=== PATIENT | female | born 1955 | race Caucasian/White ===

== ENCOUNTER 2020-12-13 11:40 | Outpatient (REF) | payer MEDICARE, SELFPAY ==
[2020-12-13 12:40] LABS: MANUAL DIFF FLAG NO
[2020-12-13 12:45] LABS: Basophils Absolute Auto 0.1 X10*3/uL (0.0-0.2); Basophils Percent Auto 1.2 % (0-2); Eosinophils Absolute Auto 0.4 X10*3/uL (0.0-0.4); Eosinophils Percent Auto 7.1 % (0-4); Hemoglobin 10.8 g/dl (12.0-16.0); Imm Gran Abs Auto 0.03 X10*3/uL (0.00-0.03); Imm Gran Pct Auto 0.5 % (0.0-0.4); Lymphocytes Absolute Auto 1.8 X10*3/uL (1.2-4.9); Lymphocytes Percent Auto 32.2 % (20-40); Mean Corpuscular HGB Conc 29.2 g/dl (31.0-35.0); Mean Corpuscular Hemoglobin 23.1 pg (27.0-33.0); Mean Corpuscular Volume 79.2 fL (80-98); Mean Platelet Volume 9.8 fL (9.4-12.3); Monocytes Absolute Auto 0.6 X10*3/uL (0.1-1.2); Monocytes Percent Auto 10.2 % (2-11); Neutrophils Absolute Auto 2.8 X10*3/uL (2.0-8.3); Neutrophils Percent Auto 48.8 % (45-73); Platelet Count 303 X10*3/uL (160-400); Red Blood Count 4.67 X10*6/uL (4.20-5.50); Red Cell Distribution Width 17.4 % (11.0-16.0); White Blood Count 5.7 X10*3/uL (4.8-10.8)
[2020-12-13 13:09] LABS: Alanine Aminotransferase 28 U/L (0-31); Albumin Level 3.8 g/dL (3.5-5.0); Alkaline Phosphatase 83 U/L (39-117); Anion Gap 12 (12-20); Aspartate Amino Transferase 30 U/L (5-31); Bilirubin Total 0.7 mg/dL (0.0-1.0); Blood Urea Nitrogen 15 mg/dL (9-16); Calcium 9.5 mg/dL (8.4-10.2); Carbon Dioxide 25 mmol/L (22-29); Chloride 110 mmol/L (96-108); Estimated Glomerular Filt Rate 57; Glucose Fasting 109 mg/dL (60-99); Potassium 4.6 mmol/L (3.3-5.1); Sodium 142 mmol/L (135-145); Total Protein 6.1 g/dL (6.5-8.0)
[2020-12-13 13:25] LABS: Thyroid Stimulating Hormone 0.33 uIU/mL (0.32-4.0)
== END 2020-12-13 11:41 | disposition home or self-care (01) ==
LOC: HO.MANLDS 11:40
PROVIDERS: PCP Physician Assistant; Visit Provider Physician Assistant
DX: I10 Essential (primary) hypertension (principal); E03.9 Hypothyroidism, unspecified
CPT/HCPCS: 36415; 80053; 84439; 84443; 85025

== ENCOUNTER 2021-09-26 10:35 | Outpatient (REF) | payer MEDICARE, SELFPAY ==
[2021-09-26 13:20] LABS: MANUAL DIFF FLAG NO
[2021-09-26 13:25] LABS: Basophils Absolute Auto 0.1 X10*3/uL (0.0-0.2); Basophils Percent Auto 1.3 % (0-2); Eosinophils Absolute Auto 0.3 X10*3/uL (0.0-0.4); Eosinophils Percent Auto 4.2 % (0-4); Hematocrit 41.1 % (37.0-47.0); Hemoglobin 11.9 g/dl (12.0-16.0); Imm Gran Abs Auto 0.02 X10*3/uL (0.00-0.03); Imm Gran Pct Auto 0.3 % (0.0-0.4); Lymphocytes Percent Auto 28.3 % (20-40); Mean Corpuscular Hemoglobin 23.3 pg (27.0-33.0); Mean Corpuscular Volume 80.6 fL (80.0-98.0); Mean Platelet Volume 10.2 fL (9.4-12.3); Monocytes Absolute Auto 0.5 X10*3/uL (0.1-1.2); Monocytes Percent Auto 7.5 % (2-11); Neutrophils Absolute Auto 4.1 x10*3/uL (2.0-8.3); Neutrophils Percent Auto 58.4 % (45-73); Platelet Count 376 X10*3/uL (160-400); Red Cell Distribution Width 17.6 % (11.0-16.0)
[2021-09-26 13:34] LABS: Alanine Aminotransferase 20 U/L (0-31); Albumin Level 4.1 g/dL (3.5-5.0); Alkaline Phosphatase 97 U/L (39-117); Anion Gap 14 (12-20); Aspartate Amino Transferase 22 U/L (5-31); Bilirubin Total 0.7 mg/dL (0.0-1.0); Blood Urea Nitrogen 16 mg/dL (9-16); Calcium 9.8 mg/dL (8.4-10.2); Carbon Dioxide 26 mmol/L (22-29); Chloride 104 mmol/L (96-108); Cholesterol 205 mg/dL; Estimated Glomerular Filt Rate 51; Glucose Fasting 104 mg/dL (60-99); HDL Cholesterol 38 mg/dL; LDL Cholesterol Calculated 124 mg/dl; Potassium 4.5 mmol/L (3.3-5.1); Sodium 139 mmol/L (135-145); Total Protein 6.8 g/dL (6.5-8.0); Triglycerides 216 mg/dL
[2021-09-26 13:55] LABS: Free T4 (Free Thyroxine) 0.93 ng/dL (0.71-1.85); Thyroid Stimulating Hormone 0.72 uIU/mL (0.32-4.0)
== END 2021-09-26 10:36 | disposition home or self-care (01) ==
LOC: HO.MANLDS 10:35
PROVIDERS: Visit Provider Physician Assistant
DX: E78.2 Mixed hyperlipidemia (principal)
CPT/HCPCS: 36415; 80053; 80061; 84439; 84443; 85025

== ENCOUNTER 2022-02-22 10:53 | Outpatient (REF) | payer MEDICARE, SELFPAY ==
[2022-02-22 14:11] LABS: MANUAL DIFF FLAG NO
[2022-02-22 14:14] LABS: Basophils Absolute Auto 0.1 X10*3/uL (0.0-0.2); Basophils Percent Auto 1.5 % (0-2); Eosinophils Absolute Auto 0.3 X10*3/uL (0.0-0.4); Eosinophils Percent Auto 3.8 % (0-4); Hematocrit 40.5 % (37.0-47.0); Hemoglobin 11.8 g/dl (12.0-16.0); Imm Gran Abs Auto 0.03 X10*3/uL (0.00-0.03); Imm Gran Pct Auto 0.5 % (0.0-0.4); Lymphocytes Percent Auto 30.5 % (20-40); Mean Corpuscular HGB Conc 29.1 g/dl (31.0-35.0); Mean Corpuscular Hemoglobin 23.3 pg (27.0-33.0); Mean Platelet Volume 10.2 fL (9.4-12.3); Monocytes Absolute Auto 0.6 X10*3/uL (0.1-1.2); Monocytes Percent Auto 8.3 % (2-11); Neutrophils Absolute Auto 3.7 x10*3/uL (2.0-8.3); Neutrophils Percent Auto 55.4 % (45-73); Platelet Count 356 X10*3/uL (160-400); Red Blood Count 5.06 X10*6/uL (4.20-5.50); Red Cell Distribution Width 16.6 % (11.0-16.0); White Blood Count 6.7 X10*3/uL (4.8-10.8)
[2022-02-22 14:58] LABS: Alanine Aminotransferase 17 U/L (0-31); Alkaline Phosphatase 91 U/L (39-117); Anion Gap 12 (12-20); Aspartate Amino Transferase 20 U/L (5-31); Bilirubin Total 0.6 mg/dL (0.0-1.0); Blood Urea Nitrogen 14 mg/dL (9-16); Calcium 9.8 mg/dL (8.4-10.2); Carbon Dioxide 29 mmol/L (22-29); Chloride 105 mmol/L (96-108); Cholesterol 211 mg/dL; Estimated Glomerular Filt Rate 57; Free T4 (Free Thyroxine) 0.92 ng/dL (0.71-1.85); Glucose Random 96 mg/dL (60-115); HDL Cholesterol 40 mg/dL; LDL Cholesterol Calculated 123 mg/dl; Sodium 141 mmol/L (135-145); Thyroid Stimulating Hormone 0.97 uIU/mL (0.32-4.0); Total Protein 6.5 g/dL (6.5-8.0); Triglycerides 244 mg/dL
== END 2022-02-22 10:54 | disposition home or self-care (01) ==
LOC: HO.MANLDS 10:53
PROVIDERS: Visit Provider Physician Assistant
DX: Z00.00 Encounter for general adult medical examination without abnormal findings (principal)
CPT/HCPCS: 36415; 80053; 80061; 84439; 84443; 85025

== ENCOUNTER 2023-07-10 14:35 | Outpatient (REF) | payer MEDICARE, SELFPAY ==
[2023-07-10 17:55] LABS: MANUAL DIFF FLAG NO
[2023-07-10 18:11] LABS: Estimated Average Glucose 117 mg/dL; Hemoglobin A1c % 5.7 % (<6.0)
[2023-07-10 18:31] LABS: Basophils Absolute Auto 0.1 X10*3/uL (0.0-0.2); Basophils Percent Auto 1.6 % (0-2); Eosinophils Absolute Auto 0.3 X10*3/uL (0.0-0.4); Eosinophils Percent Auto 4.1 % (0-4); Hematocrit 38.3 % (37.0-47.0); Hemoglobin 11.6 g/dl (12.0-16.0); Imm Gran Abs Auto 0.03 X10*3/uL (0.00-0.03); Imm Gran Pct Auto 0.4 % (0.0-0.4); Lymphocytes Absolute Auto 2.5 X10*3/uL (1.2-4.9); Lymphocytes Percent Auto 32.8 % (20-40); Mean Corpuscular HGB Conc 30.3 g/dl (31.0-35.0); Mean Corpuscular Hemoglobin 23.9 pg (27.0-33.0); Mean Corpuscular Volume 78.8 fL (80.0-98.0); Mean Platelet Volume 10.3 fL (9.4-12.3); Monocytes Absolute Auto 0.6 X10*3/uL (0.1-1.2); Monocytes Percent Auto 8.2 % (2-11); Neutrophils Percent Auto 52.9 % (45-73); Platelet Count 370 X10*3/uL (160-400); Red Blood Count 4.86 X10*6/uL (4.20-5.50); Red Cell Distribution Width 18.7 % (11.0-16.0); White Blood Count 7.6 X10*3/uL (4.8-10.8)
[2023-07-10 18:51] LABS: Erythrocyte Sedimentation Rate 5 MM/HR (0-20)
[2023-07-10 18:55] LABS: Alanine Aminotransferase 34 U/L (0-31); Alkaline Phosphatase 88 U/L (39-117); Anion Gap 15 (12-20); Aspartate Amino Transferase 35 U/L (5-31); Bilirubin Total 0.7 mg/dL (0.0-1.0); Blood Urea Nitrogen 16 mg/dL (9-16); C Reactive Protein 0.25 mg/dL (< or = 0.50); Calcium 10.2 mg/dL (8.4-10.2); Carbon Dioxide 22 mmol/L (22-29); Chloride 106 mmol/L (96-108); Estimated Glomerular Filt Rate 52; Glucose Random 101 mg/dL (60-115); Magnesium 2.1 mg/dL (1.6-2.6); Phosphorus 3.5 mg/dL (2.7-4.5); Potassium 4.3 mmol/L (3.3-5.1); Sodium 139 mmol/L (135-145); Total Protein 6.9 g/dL (6.5-8.0); Uric Acid 7.4 mg/dL (2.4-5.7)
[2023-07-10 19:12] LABS: Free T4 (Free Thyroxine) 0.86 ng/dL (0.71-1.85); Thyroid Stimulating Hormone 0.47 uIU/mL (0.32-4.0); Vitamin D 25-OH Total 37.1 ng/mL (>30)
[2023-07-11 08:32] LABS: Parathyroid Hormone Intact 94.6 pg/mL (8.7-77.1)
[2023-07-11 18:23] LABS: Lyme Abs Screen <0.90 index
== END 2023-07-10 14:36 | disposition home or self-care (01) ==
LOC: HO.MANLDS 14:35
PROVIDERS: Visit Provider Physician Assistant
DX: Z00.00 Encounter for general adult medical examination without abnormal findings (principal); M79.18 Myalgia, other site
CPT/HCPCS: 36415; 80053; 82306; 82550; 83036; 83735; 83970; 84100; 84439; 84443; 84550; 85025; 85652; 86140; 86617; 86618

== ENCOUNTER 2023-07-13 11:53 | Outpatient (REF) | payer MEDICARE, SELFPAY ==
[2023-07-13 18:29] LABS: Cholesterol 177 mg/dL (<200); HDL Cholesterol 37 mg/dL (>40); LDL Cholesterol Calculated 109 mg/dL (<100); Triglycerides 157 mg/dL (<150)
== END 2023-07-13 11:54 | disposition home or self-care (01) ==
LOC: HO.MANLDS 11:53
PROVIDERS: Visit Provider Physician Assistant
DX: Z00.00 Encounter for general adult medical examination without abnormal findings (principal); M79.18 Myalgia, other site
CPT/HCPCS: 36415; 80061

== ENCOUNTER 2023-07-20 11:15 | Outpatient (REF) | payer MEDICARE, SELFPAY ==
[2023-07-20 13:57] LABS: Calcium 10.1 mg/dL (8.4-10.2)
[2023-07-20 14:09] LABS: Parathyroid Hormone Intact 94.4 pg/mL (8.7-77.1)
== END 2023-07-20 11:16 | disposition home or self-care (01) ==
LOC: HO.MANLDS 11:15
PROVIDERS: Visit Provider Physician Assistant
DX: E03.8 Other specified hypothyroidism (principal)
CPT/HCPCS: 36415; 82310; 83970

== ENCOUNTER 2024-05-07 13:34 | Outpatient (REF) | payer MEDICARE, SELFPAY ==
--- OUTSIDE RECORDS SUMMARY | 2024-05-07 16:00 | XMS_ITS | Referral Summary ---
Author Organization [facility] Address [address] [place] [address] Care Team Providers Care Bologna Lacer Name Role Phone Robert Serrano Primary Care Provider [phone] Allergies Active Allergy Reactions Criticality Noted Date Comments Bee Sting Kit Anaphylaxis,Swelling High 12/26/2016 Bee type: Yellow jacket Codeine Sleep Disturbance 12/26/2016 Bad dreams Flavoring Agent (Bulk) Hives,Swelling High 12/26/2016 Throat swells when eating peanuts Medications albuterol (PROAIR HFA,VENTOLIN HFA) 90 mcg inhaler Inhale 2 puffs by mouth as needed. Active cholecalciferol (VITAMIN D3) 2,000 unit capsule Take 2,000 Units by mouth daily. Active clobetasoL (TEMOVATE) 0.05 % external solution as needed. 2 Active cyanocobalamin 1,000 mcg tablet Take 1 tablet by mouth daily. Active EPINEPHrine (EPIPEN) 0.3 mg/0.3 mL injection syringe as needed. 2 Active fluocinolone (SYNALAR) 0.025% cream as needed. 2 Active fluticasone propionate (FLONASE) 50 mcg/actuation nasal spray Administer 2 sprays into each nostril daily. 3 Active gabapentin (NEURONTIN) 300 mg capsule Take 900 mg by mouth daily. 2 Active glucosamine-cho ndroitin 500-400 mg capsule Take 1 capsule by mouth once a day. Active levothyroxine (SYNTHROID, LEVOTHROID) 100 mcg tablet Take 100 mcg by mouth daily. 3 Active lisinopriL (PRINIVIL,ZESTR IL) 20 mg tablet Take 20 mg by mouth daily. 3 Active LORazepam (ATIVAN) 0.5 mg tablet Take 0.5 mg by mouth as needed. 3 Active meloxicam (MOBIC) 15 mg tablet Take 15 mg by mouth at bed time. 2 Active metroNIDAZOLE (METROCREAM) 0.75 % cream Apply topically to the affected area daily. Active PARoxetine (PAXIL) 40 mg tablet Take 40 mg by mouth daily. 3 Active pimecrolimus (ELIDEL) 1% cream SMARTSIG:Topica l Twice Daily 2 Active selenium sulfide 2.25 % shampoo as needed. Active zolpidem (AMBIEN) 10 mg tablet Take 5 mg by mouth as needed. Active Active Problems Problem Noted Date Diagnosed Date Achilles tendonosis of right lower extremity Social History Tobacco Use Types Packs/Day Years Used Date Smoking Tobacco: Never Passive Smoke Exposure: Never Smokeless Tobacco: Never Tobacco Cessation:Counseling Given: Not Answered Alcohol Use Standard Drinks/Week Comments Yes 0 (1 standard drink = 0.6 oz pur e alcohol) social Comments Unknown Sex and Gender Information Value Date Recorded Sex Assigned at Not on file Legal Sex Female 2:17 PM EDT Gender Identity Not on file Sexual Orientation Not on file Last Filed Vital Signs Vital Sign Reading Time Taken Comments Blood Pressure 138/78 10/17/2022 7:55 AM EDT Pulse 85 10/17/2022 7:55 AM EDT Temperature 36.7 ??C (98.1 ??F) 10/17/2022 7:55 AM ED T Respiratory Rate - - Oxygen Saturation - - Inhaled Oxygen Concentration - - Weight 111.4 kg (245 lb 9.6 oz) 10/17/2022 7:55 AM EDT Height - - Body Mass Index - - Plan of Treatment Not on file Insurance [facility] MCR REPLACE [facility] Care Teams Bologna Lacer Relationship Specialty Start Date End Date RajniRobert [address] [place] [id number] PCP - General Internal Medicine 05/23/22
--- OUTSIDE RECORDS SUMMARY | 2024-05-07 16:01 | XMS_ITS | Clinical Summary ---
Author Organization [facility] Address [address] [place] [address] Care Team Providers Care Account Installer Name Role Phone Robert Serrano Primary Care Provider [phone] Allergies Active Allergy Reactions Criticality Noted Date [...] Mass Index - - Plan of Treatment Health Maintenance Due Date Last Done Comments Cologuard 1955 Colon Cancer Screening 1955 Colonoscopy 1955 FOBT / Fit Test 1955 Hepatitis C Screening 1955 Sigmoidoscopy 1955 Osteoporosis Screening 08/28/2005 Zoster Vaccines (1 of 2) 08/28/2005 RSV Vaccine (60+ years old and patients) (1 - Risk 60-74 years 1-dose series) 2015 DTaP,Tdap,and Td Vaccines (2 - Td or Tdap) 09/11/2022 09/11/2012 Mammogram 02/01/2023 02/01/2021 COVID-19 Vaccine (5 - season) 2023 11/25/2021, 12/13/2020, 05/24/2020, Additional history exists Influenza Vaccine (#1) 2023 2, 11/25/2021, 11/17/2020, Additional history exists Alcohol/Substance Use Screening 02/27/2024 Depression Screening and Follow-Up 02/27/2024 Health Care Proxy Review 02/27/2024 Social Drivers of Health Annual Screening 02/27/2024 Pneumococcal Vaccine: 50+ Years (3 of 3 - PCV20 or PCV21) 12/07/2025 12/07/2020, 11/12/2019 Hepatitis B Vaccines Aged Out No long er eligible based on patient's age to complete this topic Insurance [facility] M[facility] [employer] Care Teams Account Installer Relationship Specialty Start Date End Date Robert Serrano [address] [place] [phone] PCP - General Internal Medicine 05/23/22
--- OUTSIDE RECORDS SUMMARY | 2024-05-07 16:01 | XMS_ITS | Data Portability ---
Author Organization [facility] Home Service Address [address] [facility] [place] [address] Assessment Encounter Date Assessment Date Assessment LastModified by Organization Details LastModified Time 02/14/2021 02/14/2021 Patient agreed and verbally consents to this audio and video Telehealth appt via a secure platform [email or web address] Not available 02/14/2021 14:08:53 09/26/2021 09/26/2021 The patient denies recent falls or recurrent falls. Denies instability, weakness, abnormal gait, or difficulties with movement. The patient wears correct, supportive shoes and is not otherwise severely visually impaired. The patient is full weight bearing and if using the assistance of a cane or walker feels supported and stable with the use of such devices. All medical conditions have been taken into account that may pose a risk for the patient for falls. Home jenifer, carpets and/or rugs do not pose a challenge for the patient. The patient has been educated about the use of vitamin D supplementation for bone health and prevention of hypotensive episodes that may increase risk for fall. All question and concerns were answered to the patient's satisfaction. [email or web address] Not available 09/26/2021 10:17:29 04/18/2024 04/18/2024 Patient presented for medication refill. Patient tolerating medication well at current dose without adverse effects. Refilled as below. Discussed plan with patient, who expressed understanding. Follow up as noted below. [email or web address] Not available 04/18/2024 14:29:01 Plan of Treatment Reminders Order Date Submit Date Provider Last Modified By Organization Details Last Modified Time Details Appointments Pre-Op 2024 10:00A M VIPUL LOW Not available Not available Not available ANNUAL EXAM 2024 03:30P M VIPUL LOW Not available Not available Not available Lab lipid panel, serum 2024 025 [facility], [address] [place] [address], [id number], 04/18/2024 15:02:56 TSH + free T4, serum 2024 025 [facility], [address] [place] [address], [id number], 04/18/2024 14:47:40 CMP, serum or plasma 2024 025 [facility], [address] [place] [address], [id number], 04/18/2024 14:47:40 CBC w/ auto diff 2024 025 [facility], [address] [place] [address], [id number], 04/18/2024 14:47:40 CMP, serum or plasma 2023 024 [facility], [address] [place] [address], [id number], 06/27/2023 14:54:52 CBC w/ auto diff 2023 024 [facility], [address] [place] [address], [id number], 06/27/2023 14:54:52 lipid panel, blood 2023 024 [facility], [address] [place] [address], [id number], 07/16/2023 11:44:00 vitamin D, 25-hydrox y, total, serum 2023 024 [facility], [address] [place] [address], [id number], 06/27/2023 14:54:52 hemoglobi n A1c, QN, blood 2023 024 [facility], [address] [place] [address], [id number], 06/27/2023 14:54:52 TSH + free T4, serum 2023 024 [facility], [address] [place] [address], [id number], 06/27/2023 14:54:52 CK (creatine kinase), total, serum 2023 024 [facility], [address] [place] [address], [id number], 06/27/2023 14:54:52 magnesium , serum or plasma 2023 024 [facility], [address] [place] [address], [id number], 06/27/2023 14:54:52 PTH (parathyr oid hormone), intact + calcium, serum or plasma 2023 024 [facility], [address] [place] [address], [id number], 07/23/2023 11:23:25 phosphoru s, serum or plasma 2023 024 [facility], [address] [place] [address], [id number], 06/27/2023 14:54:53 ESR (erythroc yte sedimenta tion rate), blood 2023 [facility], [address] [place] [address], [id number], 06/27/2023 14:54:53 lyme disease igg+igm, serum, reflex western blot 2023 [facility], [address] [place] [address], [id number], 07/12/2023 11:23:42 C reactive protein, QN, serum or plasma 2023 [facility], [address] [place] [address], [id number], 06/27/2023 14:54:53 uric acid, serum or plasma 2023 024 [facility], [address] [place] [address], [id number], 06/27/2023 14:54:52 CMP, serum or plasma 2021 [facility], [address] [place] [address], [id number], 02/23/2022 11:35:24 CBC w/ auto diff 2021 [facility], [address] [place] [address], [id number], 02/23/2022 11:35:24 lipid panel, blood 2021 [facility], [address] [place] [address], [id number], 02/23/2022 11:35:24 TSH + free T4, serum 2021 [facility], [address] [place] [address], [id number], 02/23/2022 11:35:24 CMP, serum or plasma 2021 [facility], [address] [place] [address], [id number], 09/27/2021 12:32:35 lipid panel, serum 2021 [facility], [address] [facility], [place], [address], 09/27/2021 12:32:35 CBC w/ auto diff 2021 022 [facility], [address] [place], [address], 09/27/2021 12:32:36 TSH + free T4, serum 2021 022 [facility], [address] [place], [address], 09/27/2021 12:32:35 Referral plastic surgeon referral 2024 025 rajesh Wright MD, [address] [place], [facility] [address], [place], [address], 04/21/2024 08:30:57 plastic surgeon referral 2021 022 rajesh Osei MD, [address] [place], [address], 03/23/2022 08:52:15 vascular surgeon referral 2021 022 [email or web address] 10 [facility] [place], [address] [facility], [facility] [address], [place], [address], 09/27/2021 12:08:33 public health aides teacher referral 2020 021 [email or web address] 10 Govind Teresa, [address] [place], [address], 02/15/2021 08:00:02 Procedures None recorded. Surgeries None recorded. Imaging US, thyroid 2023 024 [email or web address] Not available 06/29/2023 09:39:13 MAMMO, screening , digital, bilateral 2023 024 [email or web address] Not available 07/11/2023 08:13:58 PFT, complete 2023 024 PRABHAKAR Not available 07/10/2023 09:16:29 US, abdominal wall - LLQ, possible cyst, hx of large cyst developme nt 2023 024 [email or web address] Not available 06/29/2023 09:39:13 XR, ankle, 3 or more view 2021 022 PRABHAKAR Not available 09/29/2021 23:06:34 Medication Orders Wegovy 0.25 mg/0.5 mL subcutane ous pen injector 2024 [place] [id number], [address] [place], [place], [id number], 04/18/2024 14:41:17 meloxicam 15 mg tablet 2024 [place] [facility], [address] [place] [address], [address], [place], [place], [id number], 04/18/2024 14:39:31 lorazepam 0.5 mg tablet 2024 [place] [facility]03951, [address], [place], [id number], 04/18/2024 14:39:39 gabapenti n 300 mg capsule 2021 [place] [facility], [address], [address], [place], [place], [id number], 02/22/2022 10:20:31 albuterol sulfate HFA 90 mcg/actua tion aerosol inhaler 2021 [place] [facility], [address], [address], [place], [place], [id number], 02/22/2022 10:20:57 lorazepam 0.5 mg tablet 2021 [place] [facility], [address], [address], [place], [place], [id number], 02/22/2022 10:22:28 lisinopri l 20 mg tablet 2021 [place] [facility], [address] [place] [address], [facility] [address] [place], [id number], 02/22/2022 10:20:30 levothyro xine 100 mcg tablet 2021 [place] [facility], [address] [place] [address], [facility] [address], [place], [place], [id number], 02/22/2022 10:20:30 lorazepam 0.5 mg tablet 2021 [facility] #26940, [address], [place], [id number], 09/26/2021 10:31:55 paroxetin e 40 mg tablet 2021 [facility]10159, [address], [place], [id number], 09/26/2021 10:31:44 albuterol sulfate HFA 90 mcg/actua tion aerosol inhaler 2021 [facility] #33089, [address], [place], [id number], 09/26/2021 10:20:56 fluticaso ne propionat e 50 mcg/actua tion nasal spray,[facility] 2021 [facility] #69297, [address], [place], [id number], 09/26/2021 10:31:45 lisinopri l 20 mg tablet 2021 [facility] #14428, [address], [place], [id number], 09/26/2021 10:31:53 levothyro xine 100 mcg tablet 2021 022 PRABHAKAR [facility] #81694, [address], [place], [id number], 09/26/2021 10:29:59 Medrol (Dieudonne) 4 mg tablets in a dose pack 2020 [email or web address] [facility] #90440, [address], [place], [id number], 04/18/2024 14:14:50 terbinafi ne HCl 250 mg tablet 2020 [email or web address] [facility] #00787, [address], [place], [id number], 09/26/2021 10:14:14 selenium sulfide 2.25 % shampoo 2020 [email or web address] [facility] #08067, [address], [place], [id number], 06/27/2023 14:24:05 Patient TargetsNo targets recorded. Patient Instructions Encounter Date Encounter Id Patient Instructions Last Modified By Organization Details Last Modified Time 09/26/2021 [id number] pulse oximetry* [email or web address] Not available 09/26/2021 10:20:48 Reason for Referral Freight Caller Referral for Gener alized rash generalized, spreading pruritic rash Referring Physician: Heena Bravo, Internal Medicine, Encounter Date: 02/14/2021 Vascular Surgeon Referral fo r Varicose veins of lower extremity with inflammation worsening varicose veins with pain Referring Physician: Heena Bravo, Internal Medicine, Encounter Date: 09/26/2021 Plastic Surgeon Referral for Obesity would like to discuss abdominal fat reduction, possible tummy-tuck Referring Physician: Heena Bravo, Internal Medicine, Encounter Date: 02/22/2022 Plastic Surgeon Referral for Obesity would like to discuss abdominal fat reduction, possible tummy-tuck Referring Physician: Heena Bravo, Internal Medicine, Encounter Date: 04/18/2024 Results Created Date Observation Date Name Description Value Unit Range Abnormal Flag Note LastModifiedBy Organization Detail LastModifiedTime 09/27/19 22 09/26/2021 pulse oxime try* Result 95 Not Available [facility] [address] [facility] [address], [place], [address], 09/26/2021 08:29:08 02/02/20 21 02/01/2021 bone densi ty No observ ation record ed. [email or web address] Not Available 2020 09:29:21 02/02/20 21 02/01/2021 MAMMO , scree penelope, digit al, bilat eral No observ ation record ed. [facility] [address] [place] [address], [id number], 02/01/2021 09:43:47 09/30/19 22 09/28/2021 XR, ankle , 3 or more view No observ ation record ed. [facility] (Mammo) [address] [place] [address], [id number], 09/30/2021 11:30:15 02/08/20 23 02/05/2023 XR, chest , 2 view No observ ation record ed. [facility] Hosp (Scheduling Dept) [address] [place] [address], [id number], 02/07/2023 13:49:54 03/16/19 24 03/14/2023 XR, chest , 2 view No observ ation record ed. [facility] [address] [place] [address], [id number], 03/16/2023 11:43:25 07/10/19 24 07/10/2023 PFT, compl ete No observ ation record ed. [facility] (Genetics) [address] [place] [address], [address], 07/10/2023 09:22:03 07/10/19 24 07/10/2023 PFT, compl ete No observ ation record ed. [email or web address] [address], [place], [address], 07/11/2023 09:36:39 07/10/19 24 07/10/2023 PFT, compl ete No observ ation record ed. [email or web address] [facility] Medicine [address], [place], [address], 07/10/2023 15:08:08 07/10/19 24 07/10/2023 PFT, compl ete No observ ation record ed. [facility] ([address], [address], 07/11/2023 09:36:40 08/02/19 24 08/01/2023 US, abdom inal wall No observ ation record ed. [email or web address] [address], [address], 08/03/2023 10:22:58 08/02/19 24 08/01/2023 US, thyro id No observ ation record ed. [address], [address], 08/03/2023 10:23:56 08/11/19 24 08/01/2023 CT, chest , w/o contr ast No observ ation record ed. [email or web address] [address], [address], 08/13/2023 09:43:58 03/12/19 25 03/12/2024 XR, chest , 2 view No observ ation record ed. [email or web address] [address], [address], 03/12/2024 16:27:32 Result Notes None recorded. Problems Name Problem SNOMED Code Status Onset Date Resolution Date Notes Provider Name and Address Organization Details Recorded Time Recurren t major depressi on 53562724 Active 2019 Not Available [facility] 1 13:18:15 Varicose veins of lower extremit y with inflamma tion Active 2021 VIPUL LOW [address] [place], [address], [facility] 2 10:26:11 Right Achilles tendinit is 0344326062 97096 Active 2021 VPIUL LOW [address] [place] [address], [address], [facility] 2 10:27:44 Hyperlip idemia 56212402 Active 2021 VIPUL LOW [address] [place] [address], [address], [facility] 2 10:28:21 Excessiv e skin and subcutan eous tissue 782977281 Active 2021 VIPUL LOW [address] [place] [address], [address], [facility] 2 14:45:16 Insertio nal Achilles tendinop athy 867387215 Active 2021 VIPUL LOW [address] [place] [address], [address], [facility] 2 11:30:45 Chronic cough 40790168 Active 2023 VIPUL LOW [address] [place] [address], [address], [facility] 4 11:10:06 Bronchit is 71845948 Active 2023 VIPUL LOW [address] [place] [address], [address], [facility] 4 11:44:39 Muscle pain 69621862 Active 2023 VIPUL LOW [address] [place] [address], [address], [facility] 4 14:45:16 Pain of right knee joint 4370071179 23930 Active 2023 VIPUL LOW [address] [place], [address], [facility] 4 14:45:39 Thyroid nodule 517531816 Active 2023 VIPUL LOW [address] [place], [address], [facility] 4 14:49:16 Soft tissue swelling 395136312 Active 2023 VIPUL LOW [address] [place], [address], [facility] 4 14:52:11 Mood disorder 34630188 Active 2023 VIPUL OLW [address] [place], [address], [facility] 4 14:53:43 Acute bronchit is 31964022 Active 2024 VIPUL LOW [address] [place], [address], [facility] 5 11:02:15 Pain in right hip joint 6045691313 61430 Active 2024 VIPUL LOW [address] [place], [address], [facility] 5 14:42:44 Insomnia 153260197 Active 2017 Not Available [facility] 13:18:16 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 Not Available [facility] 13:18:16 [facility] hyperten tom 48214232 Active 2017 Not Available [facility] 13:18:16 Anemia 353294623 Active 2017 Not Available [facility] 13:18:16 Anxiety 23327487 Active 2017 Not Available [facility] 13:18:16 Obesity 816714760 Active 2017 Not Available [facility] 1 13:18:15 Allergic rhinitis 92085294 Active 2017 Not Available [facility] 13:18:16 Asthma 022903952 Active 2017 Frequent bronchit is Not Available [facility] 13:18:16 Cyst of kidney 959549954 Active 2017 X 2 2001, 2006 s/p lab drainage Not Available [facility] 13:18:16 Liver cyst 29085432 Active 2017 Not Available [facility] 13:18:16 Osteoart hritis 235741063 Active 2017 Not Available [facility] 13:18:16 Gastroes ophageal reflux disease 964210313 Active 2017 Not Available [facility] 13:18:16 Transien t cerebral ischemia 351142357 Active 2017 2009 [place] type event Not Available [facility] 13:18:16 History of depressi on 756023234 Completed 201703/12/2019May ALEC Babin [address] [place] [address], [address] [place] [address] Internal Medicine 0 11:02:30 Low back pain 472910073 Active 2017 Not Available [facility] 1 13:18:15 Carpal tunnel syndrome 97659672 Active 2017 s/p released 2007 Not Available [facility] 1 13:18:16 Pneumoni a 210053139 Active 2017 Not Available [facility] 13:18:16 Hemorrho ids 22895184 Active 2017 Not Available [facility] 13:18:15 Gastric ulcer 725431979 Active 2017 age 9 Not Available [facility] 13:18:16 History of varicose veins 280845141 Active 2017 Not Available [facility] 13:18:16 Mensally e Active 2017 Not Available [facility] 13:18:15 Proteinu garfield 50654534 Active 2017 Transien t Not Available [facility] 13:18:16 Non-alco holic fatty liver 746920941 Active 2017 Not Available [facility] 13:18:16 Notes:Some problems listed i n Documents: #[id number], #[id number] could not be added to this patient's chart. Please review these documents and add these problems to the patient's chart manually as needed. Problem Notes None recorded. Procedures Surgical History Date Name Laterality Status Provider Name and Address Organization Details Recorded Time 019 Colonoscopy completed Mireya Gonsales [facility] 04/23/2018 08:49:46 018 Joint Replacement completed Stacia Walters NP, [address] [facility], [place], [address] 12/26/2017 14:26:01 Tonsillectomy completed Yolanda Figueroa [facility] 08/31/2017 14:49:16 Imaging Results Imaging Date Name Status [facility] by [facility] Details LastModified Time 02/01/2021 bone density completed [email or web address] Information not available 02/01/2021 09:29:21 02/01/2021 MAMMO, screening, digital, bilateral completed [facility] [address] [place] [address], [address], 02/01/2021 09:43:47 09/28/2021 XR, ankle, 3 or more view completed [facility]iology (Mammo) [address] [place] [address], [address], 09/30/2021 11:30:15 02/05/2023 XR, chest, 2 view completed [facility]osp (Scheduling Dept) [address] [place] [address], [address], 02/07/2023 13:49:54 03/14/2023 XR, chest, 2 view completed [facility] [address] [place] [address], [address], 03/16/2023 11:43:25 07/10/2023 PFT, complete completed [facility] [address] [place] [address], [address], 07/10/2023 09:22:03 07/10/2023 PFT, complete completed [facility] rna Medicine [address], [place], [address], 07/11/2023 09:36:39 07/10/2023 PFT, complete completed [facility] rna Medicine [address], [place], [address], 07/10/2023 15:08:08 07/10/2023 PFT, complete completed [facility] (Genetics) [address] [place] [address], [address], 07/11/2023 09:36:40 08/01/2023 US, abdominal wall completed [email or web address] [place] [address], [address], 08/03/2023 10:22:58 08/01/2023 US, thyroid completed [email or web address] [place] [address], [address], 08/03/2023 10:23:56 08/01/2023 CT, chest, w/o contrast completed [email or web address] [address], [address], 08/13/2023 09:43:58 03/12/2024 XR, chest, 2 view completed [email or web address] [address], [address], 03/12/2024 16:27:32 Procedure Notes None recorded. Medical Equipment None Reported. Allergies Allergen ID Allergen Name Allergen Category Reaction Reaction Severity Criticality Documentation Date Start Date Code Code System Note Provider Name and Address Organization Details Recorded Time 1763 codeine medicatio n Not available Not available Not available 08/31/2017 4250 RxNorm Yolanda Figueroa [facility] 8 14:48:00 Medications Name Sig Start Date Stop Date Status Note LastModified by Organization Details LastModified Time Prescripti on - Change 10/18 completed Not Available Not Available Not Available synthroid 100 mcg tabs 09/03 completed Not Available Not Available Not Available cephalexin 500 mg caps 09/03 completed Not Available Not Available Not Available synthroid 112 mcg tabs 09/03 completed Not Available Not Available Not Available paroxetine hcl 30 mg tabs 09/10 completed Not Available Not Available Not Available xarelto 10 mg tabs 09/10 completed Not Available Not Available Not Available zolpidem tartrate 10 mg tabs 09/10 completed Not Available Not Available Not Available meloxicam 15 mg tabs 11/21 completed Not Available Not Available Not Available gabapentin 400 mg caps Take one tablet once in the morning, one once in the afternoo n and 800mg at night 09/10 completed Not Available Not Available Not Available Prescripti on - New 09/03 completed Not Available Not Available Not Available oxycodone hcl 5 mg tabs 03/06 completed Not Available Not Available Not Available Prescripti on - Prior Authorizat ion Request 03/06 completed Not Available Not Available Not Available doxycyclin e hyclate 100 mg caps 09/03 completed Not Available Not Available Not Available epinephrin e 0.3 mg/0.3ml soaj 12/26 completed Not Available Not Available Not Available levothyrox ine sodium 100 mcg tabs 03/12 completed Not Available Not Available Not Available sm gentle laxative 5 mg tbec 09/10 completed Not Available Not Available Not Available lisinopril 20 mg tabs 03/12 completed Not Available Not Available Not Available gabapentin 300 mg caps 03/12 completed Not Available Not Available Not Available prevnar 13 susp 09/03 completed Not Available Not Available Not Available peg-3350/e lectrolyte s 236 gm solr 09/10 completed Not Available Not Available Not Available doxepin hcl 10 mg caps 09/03 completed Not Available Not Available Not Available paroxetine hcl 40 mg tabs 03/12 completed Not Available Not Available Not Available synthroid 125 mcg tabs 09/03 completed Not Available Not Available Not Available tramadol hcl 50 mg tabs 09/03 completed Not Available Not Available Not Available lorazepam 0.5 mg tabs 09/02 completed Not Available Not Available Not Available zolpidem tartrate 5 mg tabs 03/12 completed Not Available Not Available Not Available paroxetine hcl 20 mg tabs 1 qd 09/10 completed Not Available Not Available Not Available fluticason e propionate 50 mcg/act susp 09/02 completed Not Available Not Available Not Available proair hfa 108 (90 base) mcg/act aers 09/10 completed Not Available Not Available Not Available cefuroxime axetil 250 mg tabs 09/03 completed Not Available Not Available Not Available shingrix 50 mcg susr 09/03 completed Not Available Not Available Not Available mupirocin 2 % oint 03/06 completed Not Available Not Available Not Available prednisone 10 mg tablet 50 mg x 3 days, 40 mg x 3 days, 30 mg x 3 days, 20 mg x 3 days, 10 mg x 3 days 01/24 completed Not Available Not Available Not Available albuterol sulfate 2.5 mg/3 mL (0.083 %) solution for nebulizati on USE 3 ML VIA NEBULIZE R THREE TIMES DAILY DIRECTED active Not Available Not Available No t Available azithromyc in 250 mg tablet TAKE 2 TABLETS (500 MG) BY ORAL ROUTE ONCE DAILY FOR 1 DAY THEN 1 TABLET (250 MG) BY ORAL ROUTE ONCE DAILY FOR 4 DAYS 04/18 completed Not Available Not Available Not Available valacyclov ir 1 gram tablet TAKE 1 TABLET BY MOUTH EVERY 8 HOURS FOR 7 DAYS 01/24 completed Not Available Not Available Not Available meloxicam 15 mg tablet Take 1 tablet every day by oral route as needed for 90 days. 2024 active Not Available Not Available Not Avai lable lisinopril 20 mg tablet TAKE 1 TABLET BY MOUTH EVERY DAY active Not Available Not Available No t Available prednisone 20 mg tablet TAKE 1 TABLET BY MOUTH EVERY DAY FOR 10 DAYS 06/26 completed Not Available Not Available Not Available pimecrolim us 1 % topical cream 08/23 completed Not Available Not Available Not Available clobetasol 0.05 % topical cream 02/22 completed Not Available Not Available Not Available fluocinoni de 0.05 % topical ointment 04/18 completed Not Available Not Available Not Available ciprofloxa harsha 500 mg tablet TAKE 1 TABLET BY MOUTH EVERY 12 HOURS FOR 5 DAYS 06/26 completed Not Available Not Available Not Available sulfametho xazole 800 mg-trimeth oprim 160 mg tablet TAKE 1 TABLET BY MOUTH EVERY 12 HOURS FOR 7 DAYS 04/18 completed Not Available Not Available Not Available levothyrox ine 100 mcg tablet TAKE 1 TABLET BY MOUTH EVERY DAY active Not Available Not Available No t Available terbinafin e HCl 250 mg tablet TAKE 1 TABLET BY MOUTH EVERY DAY FOR 14 DAYS 09/26 completed Not Available Not Available Not Available lorazepam 0.5 mg tablet TAKE 1 TABLET BY MOUTH EVERY DAY NEEDED active Not Available Not Available No t Available betamethas one valerate 0.1 % topical cream APPLY THIN LAYER TOPICALL Y TO THE AFFECTED AREA EVERY DAY 02/22 completed Not Available Not Available Not Available doxycyclin e monohydrat e 100 mg capsule TAKE 1 CAPSULE BY MOUTH TWICE DAILY TAKE WITH FOOD PROTECT SKIN FROM THE SUN 02/27 completed Not Available Not Available Not Available paroxetine 30 mg tablet TAKE 1 TABLET BY MOUTH EVERY DAY 10/18 completed Not Available Not Available Not Available metronidaz ole 0.75 % topical cream APPLY TOPICALL Y TO THE AFFECTED AREA OF FACE EVERY DAY active Not Available Not Available No t Available nystatin-t riamcinolo ne 100,000 unit/g-0.1 % topical cream APPLY EXTERNAL LY TO THE AFFECTED AREA TWICE DAILY IN THE MORNING AND IN THE EVENING 01/24 completed Not Available Not Available Not Available gabapentin 300 mg capsule Take 1 capsule 3 times a day by oral route for 90 days. active Not Available Not Available No t Available mupirocin 2 % topical ointment APPLY JUST INSIDE EACH NOSTRIL TWICE DAILY FOR 5 DAYS 06/26 completed Not Available Not Available Not Available zolpidem 5 mg tablet 1 tablet by mouth at bedtime if needed 10/26 completed Not Available Not Available Not Available epinephrin e 0.3 mg/0.3 mL injection, auto-injec tor USE DIRECTED FOR ANAPHLAX IS THEN CALL 911 active Not Available Not Available No t Available zolpidem 10 mg tablet 03/12 completed Not Available Not Available Not Available methylpred nisolone 4 mg tablets in a dose pack FOLLOW PACKAGE DIRECTIO NS 04/18 completed Not Available Not Available Not Available albuterol sulfate HFA 90 mcg/actuat ion aerosol inhaler USE 2 INHALATI ONS BY MOUTH EVERY 4 HOURS 2023 active Not Available Not Available Not Avai lable paroxetine 40 mg tablet TAKE 1 TABLET BY MOUTH DAILY active Not Available Not Available No t Available clobetasol 0.05 % scalp solution 08/23 completed Not Available Not Available Not Available fluticason e propionate 50 mcg/actuat ion nasal spray,susp ension SHAKE LIQUID, THEN USE 1 SPRAY IN BOTH NOSTRILS ONCE DAILY active Not Available Not Available No t Available oxycodone 5 mg tablet 06/26 completed Not Available Not Available Not Available fluocinolo ne 0.025 % topical cream 02/22 completed Not Available Not Available Not Available Pneumovax- 23 25 mcg/0.5 mL injection syringe ADM 0.5ML IM UTD 01/24 completed Not Available Not Available Not Available Vitamin D3 25 mcg (1,000 unit) capsule Take 1 capsule every day by oral route. active bone health Not Available Not Available Not Available selenium sulfide 2.25 % shampoo APPLY TO WET SCALP TOPICALL Y ONCE A WEEK. WORK INTO A FULL LATER. LEAVE ON SCALP FOR 2 TO 3 MINS. RINSE THOROUGH LY AND THEN PAT DRY 06/26 completed Not Available Not Available Not Available milk thistle 06/26 completed OTC Not Available Not Available Not Available Vitamin B-12 2000 mg once a day active brain health Not Available Not Available Not Available Co Q-10 Take one tablet once a day active Not Available Not Available No t Available gabapentin 200 mg one tablet in the morning and one tablet in the afternoo n and 2 qhs 11/21 completed Not Available Not Available Not Available Glucosamin e-Chondrot in Take one tablet twice a day active Not Available Not Available No t Available Tylenol 325 mg capsule Take 1 capsule 3 times a day by oral route. 09/10 completed Not Available Not Available Not Available cannabidio l (CBD) oral oil Take by oral route. 01/24 completed Not Available Not Available Not Available Fluzone Quad (PF) 60 mcg (15 mcg x 4)/0.5 mL IM syringe ADM 0.5ML IM UTD 01/24 completed Not Available Not Available Not Available Wegovy 0.25 mg/0.5 mL subcutaneo us pen injector Inject 0.25 mg every week by subcutan eous route for 30 days. 2024 active Not Available Not Available Not Avai lable Vitals Date Recorded Body height Body mass index (BMI) Body weight Heart rate Oxygen saturation Oxygen saturation in Arterial blood by Pulse oximetry Systolic blood pressure Diastolic blood pressure Provider Name and Address Organization Details Last Updated DateTime 2 167.64 cm 38.4 kg/m2 586362. 27 g 69 /min 95 % 95 % 128 mm[Hg] 70 mm[Hg] [facility] [address] [place], [address], [facility] 2 10:15:26 Date Recorded Body height Body mass index (BMI) Body weight Heart rate Systolic blood pressure Diastolic blood pressure Provider Name and Address Organization Details Last Updated DateTime 2 167.64 cm 37.8 kg/m2 209920. 69 g 76 /min 158 mm[Hg] 92 mm[Hg] Yolanda Woo [facility] 2 10:05:01 Date Recorded Body weight Body mass index (BMI) Body height Heart rate Oxygen saturation Oxygen saturation in Arterial blood by Pulse oximetry Systolic blood pressure Diastolic blood pressure Provider Name and Address Organization Details Last Updated DateTime 4 981091. 04 g 40.5 kg/m2 167.64 cm 74 /min 97 % 97 % 122 mm[Hg] 76 mm[Hg] Michelle Mehta [facility] 4 14:33:36 Date Recorded Body height Body mass index (BMI) Body weight Heart rate Oxygen saturation Oxygen saturation in Arterial blood by Pulse oximetry Systolic blood pressure Diastolic blood pressure Provider Name and Address Organization Details Last Updated DateTime 5 167.64 cm 39.2 kg/m2 830801. 95 g 88 /min 98 % 98 % 132 mm[Hg] 84 mm[Hg] Michelle Mehta [facility] 5 14:20:20 Social History Question Answer Notes LastModified by Organizat ion Details LastModified Time Tobacco Smoking Status Former Smoker Yolanda Henry luna [facility] 09/03/2017 10:43:45 What Was The Date Of Your Most Recent Tobacco Screening? 04/18/2024 [email or web address] Information not available 04/18/2024 Do You Or Have You Ever Used Any Other Forms Of Tobacco Or Nicotine? No [email or web address] Information not available 09/26/2021 Sex: Unknown Functional Status None recorded. Mental Status None recorded. Family History Nothing Reported. Medical History No medical history recorded. Gynecological HistoryNo gynecological history recorded. Obstetrics History GPAL:G 0 P 0 0 0 0 Immunizations Vaccine Type Date Status Note Provider Nam e and Address Organization Details Recorded Time COVID-19, mRNA, LNP-S, PF, 30 mcg/0.3 mL dose 1 completed Not Available [facility] 11/22/2022 13:52:12 COVID-19, mRNA, LNP-S, PF, 30 mcg/0.3 mL dose 1 completed Not Available [facility] 11/22/2022 13:52:12 Influenza, split virus, quadrivalent, preservative 1 completed Not Available [facility] 11/22/2022 13:52:12 Pneumococcal conjugate PCV 13 1 completed Not Available [facility] 11/22/2022 13:52:13 COVID-19, mRNA, LNP-S, PF, 30 mcg/0.3 mL dose 1 completed Not Available [facility] 11/22/2022 13:52:12 influenza, unspecified formulation 2 completed Not Available [facility] 11/22/2022 13:52:13 Influenza, split virus, quadrivalent, preservative 9 completed Not Available [facility] 11/22/2022 13:52:12 Tdap 3 completed Not Available [facility] 11/22/2022 13:52:13 pneumococcal polysaccharide PPV23 0 completed Not Available [facility] 11/22/2022 13:52:13 Influenza, split virus, quadrivalent, preservative 0 completed Not Available [facility] 11/22/2022 13:52:12 Past Encounters Encounter ID Performer Location Encounter Start Date Encounter Closed Date Diagnosis/Indication Diagnosis SNOMED-CT Code Diagnosis ICD10 Code Diagnosis Note [id number] [facility] [address] [facility] [address] [address] 09/03/2017 10:27:46 09/03/2017 11:25:43 Hypothyroidism 51590648 E03.9 pt requesting endo referral as she continues to have sx of hypothyroi d despite adequate replacemen t Asthma 030741670 J45.90 9 quiet Essential hypertension 02673727 I10 stable on current regimen Insomnia 429940937 G47.0 0 pt cannot sleep without med. taking 5 mg, but insurance won't cover rx for nightly use try cutting dose in half to prolong coverage Pain in ri ght hip joint 8217652622 48403 M25.551 [id number] [facility] [address] [facility],[place] [address] 11/21/2017 10:55:42 11/21/2017 11:42:40 Pre-surgery evaluation 625325883 Z01.818 cleared for surgery Osteoarthritis of hip 23 2630936 M16.9 due for tkr Essential hypertension 90030742 I10 well controlled Asthma 978343725 J45.90 9 quiet [id number] Stacia Walters NP, S [facility] [address] [facility] [address] [address] 12/26/2017 13:47:19 12/26/2017 14:35:13 Dysuria-frequency syndrome 9933932 R30.0 Total repl acement of hip 46745023 Z96.649 Doing very well [id number] [facility] [address] [facility] [address] [address] 02/06/2018 11:04:05 02/06/2018 13:28:38 Pre-surgery evaluation 166166223 Z01.818 cleared for surgery labs/ekg per ortho Arthritis of knee 982426 002 M13.869 undergoing left total knee Asthma 965096204 J45.90 9 quiet Essential hypertension 15275102 I10 well controlled [id number] [facility] [address] [facility] [place] [address] 03/06/2018 10:49:25 03/06/2018 12:20:13 Hypothyroidism 47556256 E03.9 no longer seeing endo will check lbas Asthma 822398264 J45.90 9 quiet Essential hypertension 83862783 I10 she's been off BP medication since before the surgery as her BP was too low today she is normal in the office will monitor 1-2 times per week for change in bp if elevated, will restart Insomnia 807305670 G47.0 0 pt cannot sleep without zolpidem. taking 5 mg, but insurance won't cover rx for nightly use try cutting dose in half to prolong coverage History of depression 16 5772773 Z86.59 not well controlled , would like to increase dose will call if she would like to go up from 30 to 40 after 3-4 weeks Anxiety 77506381 F41.9 lots of upcoming stress would like lorazepam refill, though typically she doesn't take this [id number] [facility] [address] [facility],[place] [address] 09/10/2018 10:51:14 09/10/2018 11:31:53 Hypothyroidism 78361990 E03.9 no longer seeing endo will check labs Asthma 552267288 J45.90 9 quiet Essential hypertension 91665269 I10 had been off bp med, but then under some stress so she went back on the lisinopril 20 mg qd. she sometimes gets orthostati c hypotensio n so we will decrease bp med will cut lisinopril 20 mg in half and then recheck Insomnia 206700659 G47.0 0 pt cannot sleep without zolpidem. taking 5 mg, but insurance won't cover rx for nightly use try cutting dose in half to prolong coverage History of depression 16 5627216 Z86.59 not well controlled , would like to increase dose will call if she would like to go up from 30 to 40 after 3-4 weeks Anxiety 04984485 F41.9 lots of upcoming stress would like lorazepam refill, though typically she doesn't take this Screening procedure 2012 5006 Z13.9 Skin lesion 36399603 L98 .9 [id number] May ALEC Babin [facility] [address] [facility],[place] [address] 03/12/2019 10:23:51 03/12/2019 11:38:50 Adult health examination 294116918 Z00.00 Screening mammography 24 754288 Z12.31 Hypothyroidism 53889176 E03.9 Asthma 459495792 J45.90 9 quiet Essential hypertension 11877745 I10 well controlled Insomnia 501705787 G47.0 0 using thc/cbd for sleep - helping Anxiety 55639157 F41.9 Screening procedure 2012 5006 Z13.9 Recurrent major depression 03060921 F33.9 Decreased estrogen level 949623607 E28.39 Active or passive immunization 404848024 Z23 History of depression 16 7168407 Z86.59 would like to decreased back to 30 mg qd [id number] [facility] [address] [facility],[place] [address] 09/03/2019 11:10:46 09/03/2019 12:02:03 Asthma 788820214 J45.909 stable per patient Hypothyroidism 74792565 E03.9 stable per last bw Essential hypertension 87036122 I10 stable History of depression 16 6953073 Z86.59 stable on medication Solar lentigo 51438377 L 81.4 on the back of her left leg nothing concerning about this Raised nadege orrheic keratosis 8761097356 91653 L82.1 benign Anxiety 69371362 F41.9 stable [id number] [facility] [address] [place] [address] 10/22/2019 09:53:18 10/22/2019 10:15:52 Asthma 026901464 J45.909 stable per patient Contact dermatitis 62590 004 L25.9 will treat with pred taper and see if improvemen t [id number] [facility] [address] [facility] [address],[place] [address] 03/10/2020 08:34:25 03/10/2020 11:59:11 Anxiety 47901923 F41.9 will increase paroxetine dosage as discussed and see if improvemen t in her anxiety will fu at next appt Asthma 197927057 J45.90 9 mildly worse due to weather/se ason change needs refill in her inhaler at this time and monitor, discussed maintenanc e medication with patient and she will look into it Essential hypertension 06495248 I10 stable per patient, no side effects with medication s no interventi on needed at this time Gastroesop hageal reflux disease 564390145 K21.9 stable without medication , no interventi on needed at this time, will control symptoms with diet Hypothyroidism 48628287 E03.9 needs fu blood work to determine if any medication changes are needed at this time Intertrigo 17150855 L30. 4 rash may be due to over growth of fungus on skin related to the place pt discussed will trial topical cream and see if any improvemen t provided with derm referral to assess her rash if no improvemen t Pruritic rash 69387806 L 28.2 will start on medication for fungal infection and see if any improvemen t derm number provided to patient to call Allergic rhinitis 255464 04 J30.9 stable on current medication , no interventi on needed at this time [id number] [facility] [address] [facility] [address] [address] 10/18/2020 15:49:39 10/18/2020 16:25:28 Herpes zoster 4497486 B02.9 will treat for shingles Screening for osteoporosis 046836519 Z13.820 will fu with referral repeat bone density Screening mammography 24 660904 Z12.31 will refer for annual mammogram Cyst of abdomen 01176596 0 R19.00 needs repeat check of her abdominal cavity and kidney due to prior cyst surgery, had 20 pound cyst removed from the kidneytold her she needed repeat US to recheck her kidney and abdomen for a small cyst still present [id number] [facility] [address] [facility] [address] [address] 01/24/2021 14:31:22 01/24/2021 16:35:40 Generalized rash 159519220 R21 will set up with steriod to cream and fu with derm with her appt in February Recurrent major depression 03747680 F33.0 stable [id number] [facility] [address] [facility] [address] [address] 02/14/2021 12:15:40 02/14/2021 14:32:04 Generalized rash 931644715 R21 will set up with steriod to cream and fu with derm with her appt in February Seborrheic dermatitis of scalp 606153522 L21.0 will trial prescripti on medication [id number] [facility] [address] [facility],[place] [address] 09/26/2021 10:09:42 09/26/2021 10:43:33 Recurrent major depression 91610352 F33.0 stable Active or passive immunization 985584240 Z23 patient advised she is due for shingles Advance care planning 71 8829103 Z71.89 advised Asthma 582577904 J45.20 mildly worse due to weather/se ason change needs refill in her inhaler at this time and monitor, discussed maintenanc e medication with patient and she will look into it Right Achi lles tendinitis 6578407398 26807 M76.61 will fu with XR Hypothyroidism 59549157 E03.8 needs fu blood work to determine if any medication changes are needed at this time Essential hypertension 11497003 I10 stable Anxiety 03957927 F41.1 stable Varicose v eins of lower extremity with inflammation 61016706 I83.10 will set up with vascular surgeon Hyperlipidemia 54440142 E78.2 will fu with labwork for the patient [id number] [facility] [address] [facility] [address] [address] 02/22/2022 09:56:14 02/22/2022 14:20:46 Active or passive immunization 580512077 Z23 patient advised she is due for shingles Adult heal th examination 923024021 Z00.00 BP fluctuates , monitors at home Hypothyroidism 18355075 E03.8 needs fu blood work to determine if any medication changes are needed at this time Essential hypertension 33117194 I10 stable Low back pain 847244332 M54.59 stable Renewal of prescription 869836443 Z76.0 needs refill Anxiety 04406371 F41.1 stable Obesity 365511730 E66.[address] Osei [id number] [facility] [address] [facility] [address] [facility] [employer] [place] [address] 06/27/2023 14:11:38 06/27/2023 15:18:14 Active or passive immunization 486381552 Z23 patient advised she is due for shingles Adult heal th examination 610310048 Z00.00 BP fluctuates , monitors at home Depression screening 171 816996 Z13.31 stable Obesity 432450315 E66.[address] Osei Mood disorder 77440940 F 33.0 stable Muscle pain 45612732 M79 .18 agreed to lab work Pain of ri ght knee joint 7674501737 45114 M25.561 has fu with ortho, Dr. Avelar Thyroid nodule 336943070 E04.1 will set up with evaluation , very overdue Soft tissue swelling 298 711837 M79.89 agreed to US to determine if it is similar cyst Asthma 696679126 J45.20 agreed to PFT for worsening asthma Screening mammography 24 473354 Z12.31 will refer for annual mammogram [id number] [facility] Internal Medicine [address],[place] [address] 04/18/2024 14:07:08 04/18/2024 15:09:52 Renewal of prescription 126671839 Z76.0 needs refill Essential hypertension 56289477 I10 stable Low back pain 982240167 M54.59 stablewait ing store operations associate from [employer] Pain of ri ght knee joint 0445580018 20209 M25.561 met weight requiremen t for her TKR Obesity 960388123 E66.01 alt plastic surgeon referraltr edelmira to put in for the wegovy for patient Pain in ri ght hip joint 4074909802 86438 M25.551 will set up with refill Anxiety 20940106 F41.1 stable Hypothyroidism 56025151 E03.8 stableneed s recheck Asthma 763267863 J45.20 stable Hyperlipidemia 79986994 E78.2 will fu with labwork for the patient Health Concerns Section Related Observation LastModified by Organization Detai ls LastModified Time None Recorded Concern Status LastModified by Organization Details LastModified Time None Recorded Advance Directives Directive None Recorded Payers Encounter Date Sequence Insurance Name Policy Number Policy Vaughn Covered Member ID Vaughn Member ID Guarantor Name 02/14/2021 1 [facility] (MEDICARE REPLACEMENT/A DVANTAGE - PPO) [id number] Mine Piedad Rebollar [id number] Mine Byerse r 09/26/2021 1 [facility] (MEDICARE REPLACEMENT/A DVANTAGE - PPO) [id number] Mine G Sukhjinder Rebollar [id number] Mine G Sukhjinder-Singe r 02/22/2022 1 [facility] (MEDICARE REPLACEMENT/A DVANTAGE - PPO) [id number] Mine G Sukhjinder Rebollar [id number] Mine Herbert Sukhjinder-Singe r 06/27/2023 1 [facility] (MEDICARE REPLACEMENT/A DVANTAGE - PPO) [id number] Mine G Sukhjinder Rebollar [id number] Mine Herbert Sukhjinder-Singe r 04/18/2024 1 [facility] (MEDICARE REPLACEMENT/A DVANTAGE - PPO) [id number] Mine G Sukhjinder Rebollar [id number] Mine G Sukhjinder-Singe r Notes Date Note Type Note Provider Name a al Address Organization Details Recorded Time 1 text/html c/o rash still happening telemed the patient report that the rash has spread from her head, back and bilateral kneesthe patient is unconsciously itching herself at night causing open woundsreports some ulceration of the places she has scratchedher derm appt was moved to April, fu with HR to see if appt can be moved downwill start on oral steriod, oral antifungal and give a script for prescription shampoo [facility] [address] [place] [address], [place], [address], [facility] 02/14/2021 14:17:22 2 text/html f/u right heel pain depression: stable asthma: stable right achilles tendonitis: for the past two months, worse with plantar flexion, cruz's test negativeprobable bone spur given hx of bone spursfu with XRs and ortho referral after XRs patient would like to be referred to plastics due to excessive skin following large cyst removal a couple years ago hypothyroid: stable on medication, fu with recheck HTN: stable anxiety: stable on medication, needs refill varicouse veins Ibil): set up with the vein clinic HLD: needs recheck [facility] [address] [place], [address], [facility] 09/26/2021 10:37:48 2 text/html Annual WellnessReported bypatient.Diet and Nutrition:healthy diet; discussed vitamin and supplement use; discussed portion control; discussed maintaining calcium balance; discussed diet improvement Fracture Risk:no history of fractures; no recent explained fracture; no sudden unexplained fractures; no previous musculoskeletal injuries Physical Activity:exercises on a regular basis; recent increase in physical activity; good physical condition; discussed weightbearing activities; discussed exercise habits Additional Lifestyle Factors:no tobacco use; drinks alcohol (mild-moderate) Depression Risk:never feels sad, empty, or tearful; no loss of interest in activities; no significant changes in weight; no sleep disturbances or insomnia; no agitation; no loss of energy; no feelings of worthlessness or guilt; no thoughts of suicide; no history of depression; no history of mood disorders Hearing:no loss of hearing Vision:no vision problems the patient is doing wellchanged [facility] derm for a full body checkstill using a topical cream for her recurrent rash all set on epinehrine inj. 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 [facility] [address] [place], [address], [facility] 02/22/2022 10:37:47 4 text/html Annual WellnessReported bypatient.Diet and Nutrition:healthy diet; discussed vitamin and supplement use; discussed portion control; discussed maintaining calcium balance; discussed diet improvement Fracture Risk:no history of fractures; no recent explained fracture; no sudden unexplained fractures; no previous musculoskeletal injuries Physical Activity:exercises on a regular basis; recent increase in physical activity; good physical condition Additional Lifestyle Factors:no tobacco use; drinks alcohol (mild-moderate) Depression Risk:never feels sad, empty, or tearful; no loss of interest in activities; no significant changes in weight; no sleep disturbances or insomnia; no agitation; no loss of energy; no feelings of worthlessness or guilt; no thoughts of suicide; no history of depression; no history of mood disorders Hearing:no loss of hearing Vision:no vision problems the patient has knee pain in the R knee painhas a L knee replacement alreadyshoulder are fine the patient is otherwise doing well VIPUL LOW [address] [place], [address], [facility] 06/27/2023 15:11:43 5 text/html f/u medication check HTN: today in the office the patient BP is 132/84 L armthe patient is doing well on the BP medication with no side effects and no adjustment of their medications needed today at the appointmentwell-contr olled on medicationdenies chest pain, sob, ankle swelling, orthopnea, palpitations anxiety: stable, needs refill of ativan hypothyroidism: needs recheck and monitor it more closely if she ends up on Wegovy pain right hip: stable, will probably pain right knee: has her surgery scheduled for scheduled with our office VIPUL LOW [address] [place], [address], [facility] 04/18/2024 14:58:38 OBGyn Episode No OBEpisode recorded.
--- OUTSIDE RECORDS SUMMARY | 2024-05-07 16:01 | XMS_ITS | Continuity of Care Document ---
Author Organization [place] [facility], [facility] Address [address] [place] [address] [place] [address] Assessment Encounter Date Assessment Date Assessment LastModified by Organization Details LastModified Time 04/18/2024 04/18/2024 Patient presented for medication refill. Patient tolerating medication well at current dose without adverse effects. Refilled as below. Discussed plan with patient, who expressed understanding . Follow up as noted below. [email or web address] Not available 04/18/2024 14:29:01 Plan of Treatment Reminders Order Date Submit Date Provider Last Modified By Organization Details Last Modified Time Details Appointments Pre-Op 2024 10:00A M VIPUL LOW Not available Not available Not available ANNUAL EXAM 2024 03:30P VIPUL DIAS Not available Not available Not available Lab lipid panel, serum 2024 025 [facility], [address] [place] [address], [id number], 04/18/2024 15:02:56 TSH + free T4, serum 2024 025 [facility], [address] [place] [address], [address], 04/18/2024 14:47:40 CMP, serum or plasma 2024 025 [facility], [address] [place] [address], [address], 04/18/2024 14:47:40 CBC w/ auto diff 2024 025 [facility], [address] [facility] [facility], [place], [address], 04/18/2024 14:47:40 Referral plastic surgeon referral 2024 025 rajesh Wright MD, [address] [facility] [address], [place], [address], 04/21/2024 08:30:57 Procedures None recorded. Surgeries None recorded. Imaging None recorded. Medication Orders Wegovy 0.25 mg/0.5 mL subcutane ous pen injector 2024 025 [id number], [address] [place], [phone], 04/18/2024 14:41:17 meloxicam 15 mg tablet 2024 025 [facility], [address] [place] [address], [facility] [address], [place], [phone], 04/18/2024 14:39:31 lorazepam 0.5 mg tablet 2024 025 [id number], [address] [place], [place], [phone], 04/18/2024 14:39:39 Patient TargetsNo targets recorded. Patient InstructionsNo instructions recorded. Reason for Referral Plastic Surgeon Referral for Obesity would like to discuss abdominal fat reduction, possible tummy-tuck Referring Physician: Heena Bravo, Internal Medicine, Encounter Date: 04/18/2024 Problems Name Problem SNOMED Code Status Onset Date Resolution Date Notes Provider Name and Address Organization Details Recorded Time Recurren t major depressi on 64414878 Active 2019 Not Available [facility] 13:18:15 Varicose veins of lower extremit y with inflamma tion Active 2021 HEENA BRAVO, VIPUL [address] [place], [address], [facility] 2 10:26:11 Right Achilles tendinit is 0549690852 54966 Active 2021 VIP[facility] LOW [address] [place], [address], [facility] 2 10:27:44 Hyperlip idemia 17161829 Active 2021 VIPUL LOW [address] [place], [address], [facility] 2 10:28:21 Excessiv e skin and subcutan eous tissue 216391599 Active 2021 VIPUL LOW [address] [place], [address], [facility] 2 14:45:16 Insertio nal Achilles tendinop athy 414796499 Active 2021 [facility] LOW [address] [place], [address], [facility] 2 11:30:45 Chronic cough 79882743 Active 2023 VIPUL LOW [address] [place], [address], [facility] 4 11:10:06 Bronchit is 40115176 Active 2023 VIP[facility] LOW [address] [place], [address], [facility] 4 11:44:39 Muscle pain 58787349 Active 2023 VIP[facility] LOW [address] [place], [address], [facility] 4 14:45:16 Pain of right knee joint 9710639229 50177 Active 2023 [facility] LOW [address] [place], [address], [facility] 4 14:45:39 Thyroid nodule 947279543 Active 2023 VIP[facility] LOW [address] [place], [address], [facility] 4 14:49:16 Soft tissue swelling 794524630 Active 2023 VIP[facility] LOW [address] [place], [address], [facility] 4 14:52:11 Mood disorder 23527279 Active 2023 [facility] LOW [address] [place], [address], [facility] 4 14:53:43 Acute bronchit is 89854039 Active 2024 [facility] LOW [address] [place], [address], [facility] 5 11:02:15 Pain in right hip joint 3310462420 30922 Active 2024 VIP[facility] LOW [address] [place], [address], [facility] 5 14:42:44 Insomnia 186950073 Active 2017 Not Available [facility] 13:18:16 Hypothyr oidism 61001196 Active 2017 aloated graves 1978 Not Available [facility] 13:18:16 [facility]ia l hyperten tom 80636373 Active 2017 Not Available [facility] 13:18:16 Anemia 830212072 Active 2017 Not Available [facility] 13:18:16 Anxiety 70499113 Active 2017 Not Available [facility] 13:18:16 Obesity 444769727 Active 2017 Not Available [facility] 13:18:15 Allergic rhinitis 36587600 Active 2017 Not Available [facility] 13:18:16 Asthma 687506977 Active 2017 Frequent bronchit is Not Available [facility] 13:18:16 Cyst of kidney 006973735 Active 2017 X 2 2001, 2006 s/p lab drainage Not Available [facility] 13:18:16 Liver cyst 74700269 Active 2017 Not Available [facility] 13:18:16 Osteoart hritis 223726276 Active 2017 Not Available [facility] 13:18:16 Gastroes ophageal reflux disease 454142277 Active 2017 Not Available [facility] 13:18:16 Transien t cerebral ischemia 035061194 Active 2017 Wallenbu rg type event Not Available [facility] 13:18:16 History of depressi on 233079072 Completed 201703/12/2019May ALEC Babin [address] [place] [address], [address], [facility] 0 11:02:30 Low back pain 238090122 Active 2017 Not Available [facility] 13:18:15 Carpal tunnel syndrome 65422707 Active 2017 s/p released 2007 Not Available [facility] 13:18:16 Pneumoni a 276391999 Active 2017 Not Available [facility] 13:18:16 Hemorrho ids 06304779 Active 2017 Not Available [facility] 13:18:15 Gastric ulcer 220975944 Active 2017 age 9 Not Available [facility] 13:18:16 History of varicose veins 004232196 Active 2017 Not Available [facility] 13:18:16 Menopaus e Active 2017 Not Available [facility] 13:18:15 Proteinu garfield 22054202 Active 2017 Transien t Not Available [facility] 13:18:16 Non-alco holic fatty liver 499758560 Active 2017 Not Available [facility] 1 13:18:16 Notes:Some problems listed i n Documents: #[id number], #[id number] could not be added to this patient's chart. Please review these documents and add these problems to the patient's chart manually as needed. Problem Notes None recorded. Procedures Surgical History Date Name Laterality Status Provider Name and Address Organization Details Recorded Time 019 Colonoscopy completed Mireya Gonsales [facility] 04/23/2018 08:49:46 018 Joint Replacement completed Stacia Walters NP, [address] [place], [address], [facility] 12/26/2017 14:26:01 Tonsillectomy completed Yolanda Figueroa [facility] 08/31/2017 14:49:16 Imaging Results None recorded. Procedure Notes None recorded. Medical Equipment None Reported. Allergies Allergen ID Allergen Name Allergen Category Reaction Reaction Severity Criticality Documentation Date Start Date Code Code System Note Provider Name and Address Organization Details Recorded Time 1763 codeine medicatio n Not available Not available Not available 08/31/2017 2670 RxNorm Yolanda Figueroa [facility] 8 14:48:00 Medications Name Sig Start Date [...] Available Not Available Not Available Fluzone Quad 9981-9613 (PF) 60 mcg (15 mcg x 4)/0.5 [...] Updated DateTime 5 167.64 cm 39.2 kg/m2 030688. 95 g 88 /min 98 % 98 % 132 mm[Hg] 84 mm[Hg] Michelle Mehta [facility] 5 14:20:20 Social History Question Answer Notes LastModified by Organizat ion Details LastModified Time Tobacco Smoking Status Former Smoker YOON Cross [facility] 09/03/2017 10:43:45 What Was [...] mcg/0.3 mL dose 1 completed Not Available [facility] 11/22/2022 13:52:12 COVID-19, mRNA, LNP-S, PF, 30 mcg/0.3 mL dose 1 completed Not Available [facility] 11/22/2022 13:52:12 Influenza, split virus, quadrivalent, preservative 1 completed Not Available [facility] 11/22/2022 13:52:12 Pneumococcal conjugate PCV 13 1 completed Not Available [facility] 11/22/2022 13:52:13 COVID-19, mRNA, LNP-S, PF, 30 mcg/0.3 mL dose 1 completed Not Available [facility] 11/22/2022 13:52:12 influenza, unspecified formulation 2 completed Not Available [facility] 11/22/2022 13:52:13 Influenza, split virus, quadrivalent, preservative 9 completed Not Available [facility] 11/22/2022 13:52:12 Tdap 3 completed Not Available [facility] 11/22/2022 13:52:13 pneumococcal polysaccharide PPV23 0 completed Not Available [facility] 11/22/2022 13:52:13 Influenza, split virus, quadrivalent, preservative 0 completed Not Available [facility] 11/22/2022 13:52:12 Past Encounters Encounter ID Performer Location Encounter Start Date Encounter Closed Date Diagnosis/Indication Diagnosis SNOMED-CT Code Diagnosis ICD10 Code Diagnosis Note [id number] [facility] [address] [facility],[place] [address] 04/18/2024 14:07:08 04/18/2024 15:09:52 Renewal of prescription 553458180 Z76.0 needs refill Essential hypertension 37315017 I10 stable Low back pain 098445485 M54.59 stablewait ing construction secretary from [employer] Pain of ri ght knee joint 8541030268 43286 M25.561 met weight requiremen t for her TKR Obesity 888821981 E66.01 alt plastic surgeon referraltr edelmira to put in for the wegovy for patient Pain in ri ght hip joint 9330735517 94277 M25.551 will set up with refill Anxiety 78872120 F41.1 stable Hypothyroidism 36672747 E03.8 stableneed s recheck Asthma 017302486 J45.20 stable Hyperlipidemia 84751994 E78.2 will fu with labwork for the patient Health Concerns Section Related Observation LastModified by Organization Detai ls LastModified Time None Recorded Concern Status LastModified by Organization Details LastModified Time None Recorded Payers Encounter Date Sequence Insurance Name Policy Number Policy Vaughn Covered Member ID Vaughn Member ID Guarantor Name 04/18/2024 1 [facility] (MEDICARE REPLACEMENT/A DVANTAGE - PPO) [id number] Mine Rebollar [id number] Mine Enamorado r Notes Date Note Type Note Provider Name a nd Address Organization Details Recorded Time 04/18/2024 text/html f/u medication check HTN: today in the office the patient BP is 132/84 L armthe patient is doing well on the BP medication with no side effects and no adjustment of their medications needed today at the appointmentwell-co ntrolled on medicationdenies chest pain, sob, ankle swelling, orthopnea, palpitations anxiety: stable, needs refill of ativan hypothyroidism: needs recheck and monitor it more closely if she ends up on Wegovy pain right hip: stable, will probably pain right knee: has her surgery scheduled for junepreop scheduled with our office VIPUL LOW [address] [facility], [place], [address], [facility] 04/18/2024 14:58:38 OBGyn Episode No OBEpisode recorded.
[2024-05-07 18:19] LABS: MANUAL DIFF FLAG NO
[2024-05-07 18:27] LABS: Basophils Absolute Auto 0.2 X10*3/uL (0.0-0.2); Basophils Percent Auto 1.8 % (0-2); Eosinophils Absolute Auto 0.4 X10*3/uL (0.0-0.4); Hematocrit 40.8 % (37.0-47.0); Imm Gran Abs Auto 0.05 X10*3/uL (0.00-0.03); Imm Gran Pct Auto 0.6 % (0.0-0.4); Lymphocytes Absolute Auto 2.6 X10*3/uL (1.2-4.9); Lymphocytes Percent Auto 31.5 % (20-40); Mean Corpuscular HGB Conc 29.4 g/dl (31.0-35.0); Mean Corpuscular Hemoglobin 23.4 pg (27.0-33.0); Mean Corpuscular Volume 79.7 fL (80.0-98.0); Mean Platelet Volume 10.1 fL (9.4-12.3); Monocytes Absolute Auto 0.6 X10*3/uL (0.1-1.2); Monocytes Percent Auto 7.4 % (2-11); Neutrophils Absolute Auto 4.4 x10*3/uL (2.0-8.3); Neutrophils Percent Auto 53.7 % (45-73); Platelet Count 370 X10*3/uL (160-400); Red Blood Count 5.12 X10*6/uL (4.20-5.50); Red Cell Distribution Width 17.3 % (11.0-16.0); White Blood Count 8.2 X10*3/uL (4.8-10.8)
[2024-05-07 18:59] LABS: Alanine Aminotransferase 30 U/L (0-31); Albumin Level 4.2 g/dL (3.5-5.0); Alkaline Phosphatase 111 U/L (39-117); Anion Gap 13 (12-20); Aspartate Amino Transferase 35 U/L (5-31); Bilirubin Total 0.6 mg/dL (0.0-1.0); Blood Urea Nitrogen 13 mg/dL (9-16); Carbon Dioxide 24 mmol/L (22-29); Chloride 106 mmol/L (96-108); Estimated Glomerular Filt Rate 46; Glucose Random 85 mg/dL (60-115); Potassium 4.4 mmol/L (3.3-5.1); Sodium 139 mmol/L (135-145); Total Protein 7.4 g/dL (6.5-8.0)
[2024-05-07 19:08] LABS: Thyroid Stimulating Hormone 1.56 uIU/mL (0.32-4.0)
[2024-05-07 19:30] LABS: T4 Thyroxine 8.1 ug/dL (4.5-12.0)
[2024-05-08 09:18] LABS: Rubeola IgG (Measles) >300.00 AU/mL
== END 2024-05-07 13:35 | disposition home or self-care (01) ==
LOC: HO.MANLDS 13:34
PROVIDERS: Visit Provider Physician Assistant
DX: Z23 Encounter for immunization (principal); E03.8 Other specified hypothyroidism
CPT/HCPCS: 36415; 80053; 84436; 84443; 85025; 86735; 86762; 86765

== ENCOUNTER 2024-10-08 10:11 | Outpatient (REF) | payer MEDICARE, SELFPAY ==
--- OUTSIDE RECORDS SUMMARY | 2024-10-08 10:51 | XMS_ITS | Encounter Summary ---
Author Organization [facility] Address [address] [place] [address] Phone Care Team Providers Care Core Inspector Name Role Phone Robert Serrano Primary Care Provider [phone] Rajnijaquelin Robert Antony DO Primary Care Provider [phone] Encounter Details Date Type Department Care Team (Late Contact Info) Description 12/01/2021 Ancillary Orders [facility], X-Ray [address] [address] Jody Leal, GILL BOX FIXER [address] [place] [address] m Left wrist pain Social History Tobacco Use Types Packs/Day Years Used Date Smoking Tobacco: Never Smokeless Tobacco: Never Comments:smoked as a teenage r for about 3 months Alcohol Use Standard Drinks/Week Comments Yes 9 (1 standard drink = 0.6 oz pur e alcohol) Comments No Sex and Gender Information Value Date Recorded Sex Assigned at Not on file Legal Sex Female 9:54 PM EDT Gender Identity Not on file Sexual Orientation Not on file documented as of this encounter Plan of Treatment Upcoming Encounters Date Type Department Care Team (Late Contact Info) Description 09/23/2024 Procedure Pass [facility], [facility]- [address] [address] 11/20/2024 12:30 PM EDT Appointment [facility] [address] [place] [address] Heena Bravo PA [address] [address] [place] [address] documented as of this encounter Results * XR WRIST 3 OR MORE VIEWS (LEFT) (12/01/2021 2:12 PM EDT) Anatomical Region Laterality Modality Wrist Left Computed Radiogr aphy 12/02/2021 8:29 AM EDT Impressions 12/02/2021 9:08 AM EDT Severe first CMC joint osteoarthritis. Narrative 12/02/2021 9:08 AM EDT COMPARISON: None. LEFT WRIST RADIOGRAPH FINDINGS: 3 images obtained. No acute fracture or malalignment. Severe first CMC joint space narrowing subchondral sclerosis and osteophytes. No destructive or suspicious bone lesions. No soft tissue swelling. Procedure Note Efren Ventura MD - 12/02/2021 COMPARISON: None. LEFT WRIST RADIOGRAPH FINDINGS: 3 images obtained. No acute fracture or malalignment. Severe first CMC joint space narrowingsubchondral sclerosis and osteophytes. No destructive or suspicious bonelesions. No soft tissue swelling. IMPRESSION: Severe first CMC joint osteoarthritis. us Jody Leal GILL BOX FIXER IMG XR UPPER EXTREMITY Final Res ult documented in this encounter Visit Diagnoses Diagnosis Left wrist pain Pain in joint, forearm Left wrist pain Pain in joint, forearm documented in this encounter Additional Health Concerns Infection Onset Date Last Indicated Resolved Time MRSA 12/07/2017 12/07/2017 04/12/2022 1:41 AM EST MRSA 02/28/2023 02/28/2023 documented as of this encounter Care Teams Core Inspector Relationship Specialty Start Date End Date Robert Serrano DO PCP - General 12/14/16 09/19/24 Robert Serrano DO [address] [place] [address] [email or web address] PCP - General Internal Medicine 09/20/24 documented as of this encounter Additional Source Comments The information contained in this document represents components of the legal health record. It is not the complete legal health record.[facility]
--- OUTSIDE RECORDS SUMMARY | 2024-10-08 10:51 | XMS_ITS | Clinical Summary ---
Author Organization [facility] Address [address] [place] [address] Care Team Providers Care Bullet Casting Operator Name Role Phone Robert Serrano Primary Care Provider [phone] Allergies Active Allergy Reactions Criticality Noted Date [...] 85 10/17/2022 7:55 AM EDT Temperature 36.7 C (98.1 F) 10/17/2022 7:55 AM EDT Respiratory Rate - - Oxygen Saturation - [...] 09/11/2022 09/11/2012 Mammogram 02/01/2023 02/01/2021 COVID-19 Vaccine ( season) 2023 11/25/2021, 12/13/2020, 05/24/2020, Additional history exists Alcohol/Substance Use Screening 02/27/2024 Depression Screening and Follow-Up 02/27/2024 Health Care Proxy Review 02/27/2024 Social Drivers of Health Annual Screening 02/27/2024 Influenza Vaccine (#1) 2024 , 11/25/2021, 11/17/2020, Additional history exists Pneumococcal Vaccine: 50+ Years (3 of 3 - PCV20 or PCV21) 12/07/2025 12/07/2020, 11/12/2019 Hepatitis B Vaccines Aged Out No long er eligible based on patient's age to complete this topic Insurance [facility] [employer] [employer] Care Teams Bullet Casting Operator Relationship Specialty Start Date End Date Robert Serrano [address] [place] [phone] PCP - General Internal Medicine 05/23/22
[2024-10-08 13:52] LABS: MANUAL DIFF FLAG NO
[2024-10-08 14:05] LABS: Hematocrit 37.9 % (37.0-47.0); Hemoglobin 11.5 g/dl (12.0-16.0); Imm Gran Abs Auto 0.02 X10*3/uL (0.00-0.03); Imm Gran Pct Auto 0.3 % (0.0-0.4); Lymphocytes Absolute Auto 1.7 X10*3/uL (1.2-4.9); Mean Corpuscular HGB Conc 30.3 g/dl (31.0-35.0); Mean Corpuscular Hemoglobin 23.6 pg (27.0-33.0); Mean Corpuscular Volume 77.7 fL (80.0-98.0); NRBC Abs Auto 0.000 X10*3/uL (0.0-0.012); NRBC Pct Auto 0.0 /100WBC (0.0-0.2); Platelet Count 361 X10*3/uL (160-400); Red Blood Count 4.88 X10*6/uL (4.20-5.50); White Blood Count 6.4 X10*3/uL (4.8-10.8)
[2024-10-08 14:45] LABS: Alanine Aminotransferase 28 U/L (0-31); Albumin Level 4.2 g/dL (3.5-5.0); Alkaline Phosphatase 91 U/L (39-117); Anion Gap 11 (12-20); Aspartate Amino Transferase 27 U/L (5-31); Blood Urea Nitrogen 19 mg/dL (9-16); Calcium 9.7 mg/dL (8.4-10.2); Carbon Dioxide 27 mmol/L (22-29); Chloride 106 mmol/L (96-108); Cholesterol 183 mg/dL (<200); Estimated Glomerular Filt Rate 51; HDL Cholesterol 41 mg/dL (>40); Potassium 4.3 mmol/L (3.3-5.1); Sodium 140 mmol/L (135-145); Total Protein 6.6 g/dL (6.5-8.0); Triglycerides 183 mg/dL (<150)
[2024-10-08 14:50] LABS: Free T4 (Free Thyroxine) 0.93 ng/dL (0.71-1.85); Thyroid Stimulating Hormone 1.24 uIU/mL (0.32-4.0)
== END 2024-10-08 10:12 | disposition home or self-care (01) ==
LOC: HO.MANLDS 10:11
PROVIDERS: Visit Provider Physician Assistant
DX: E78.2 Mixed hyperlipidemia (principal); E03.9 Hypothyroidism, unspecified
CPT/HCPCS: 36415; 80053; 80061; 84439; 84443; 85025